=== PATIENT | male | born 1965 | race Caucasian/White ===

== ENCOUNTER → 2020-07-17 | Emergency (ER) | payer BC, OTHER ==
[~2020-07-17] VITALS: Ht 172.7 cm; Wt 95.4 kg
[~2020-07-17] MED LIST: HEPARIN 25,000UTS/250ML PREMIX 250 ML IV PRN; HEPARIN for IV BOLUS 10,000 UNIT/10 ML VIAL. IV ONE; HEPARIN for IV BOLUS 10,000 UNIT/10 ML VIAL. IV PRN; IOHEXOL 350 MG/ML 100 ML VIAL. IV ONE; NICOTINE 21MG PATCH. TD ONE; NITROGLYCERIN SUBLINGUAL 0.4 MG BOTTLE OF 25. SL PRN
--- NOTE | 2020-07-17 08:04 | PHYS DOC ---
Past History Past Medical History: CAD Past Surgical History: Other (cardiac stent) Smoking: Cigarettes Alcohol Use: Occasionally Drug Use: None General Adult EDM: Chief Complaint: CHEST PAIN HPI: HPI: Patient is a 54-year-old male who was brought here by EMS from work due to chest pain. Patient stated that he was at work this morning, started having substernal chest pain that radiated to his left shoulder. Patient took a total of 650 mg of aspirin. EMS were called to take him here for evaluation. EMS gave patient 1 dose of nitroglycerin and the pain improved. Patient said he had similar chest pain in the past in 2011. He was seen in the ER at [facility] in [place]. His work up was normal in the ER. He was admitted there, the next morning, his troponin elevated. They took him to the lab courier, found that he had blockage, had stents placed. Patient lives up in [place], [place]. His family physician is Dr. 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 Raghav Sage at [facility] in [place], [place]. currently the patient rated chest pain at 3 out of 10. Patient is fully vaccinated for COVID-19. Patient is still a smoker, he smoked 1 pack a day. Patient denies any recent travel or operation. Patient denies any history of diabetic or hypertension. Review of Systems: Review of Systems: Constitutional: Denies fever or chills Eyes: Denies change in visual acuity HENT: Denies nasal congestion or sore throat Respiratory: Denies cough or shortness of breath Cardiovascular: Positive for chest pain, no edema GI: Denies abdominal pain, nausea, vomiting, bloody stools or diarrhea : Denies dysuria Musculoskeletal: Denies back pain or joint pain Integument: Denies rash Neurologic: Denies headache, focal weakness or sensory changes Endocrine: Denies polyuria or polydipsia Lymphatic: Denies swollen glands Psychiatric: Denies depression or anxiety Physical Exam: PE: Constitutional: Well developed, well nourished, no acute distress, non-toxic appearance. [] HENT: Normocephalic, atraumatic, bilateral external ears normal, oropharynx moist, no oral exudates, nose normal. [] Eyes: PERRLA, EOMI, conjunctiva normal, no discharge. [] Neck: Normal range of motion, no tenderness, supple, no stridor. [] Cardiovascular:Heart rate regular rhythm, no murmur [] Lungs & Thorax: Bilateral breath sounds clear to auscultation [] Abdomen: Bowel sounds normal, soft, no tenderness, no masses, no pulsatile masses. [] Skin: Warm, dry, no erythema, no rash. [] Back: No tenderness, no CVA tenderness. [] Extremities: No tenderness, no cyanosis, no clubbing, ROM intact, no edema. [] Neurologic: Alert and oriented X 3, normal motor function, normal sensory function, no focal deficits noted. [] Psychologic: Affect normal, judgement normal, mood normal. [] Current Patient Data: Labs: Laboratory Tests Test 07/17/20 08:07 07/17/20 10:47 White Blood Count 7.6 x10^3/uL Red Blood Count 4.99 x10^6/uL Hemoglobin 15.7 g/dL Hematocrit 45.9 % Mean Corpuscular Volume 92 fL Mean Corpuscular Hemoglobin 32 pg Mean Corpuscular Hemoglobin Concent 34 g/dL Red Cell Distribution Width 13.5 % Platelet Count 235 x10^3/uL Neutrophils (%) (Auto) 63 % Lymphocytes (%) (Auto) 26 % Monocytes (%) (Auto) 8 % Eosinophils (%) (Auto) 3 % Basophils (%) (Auto) 1 % Neutrophils # (Auto) 4.8 x10^3uL Lymphocytes # (Auto) 2.0 x10^3/uL Monocytes # (Auto) 0.6 x10^3/uL Eosinophils # (Auto) 0.2 x10^3/uL Basophils # (Auto) 0.1 x10^3/uL Prothrombin Time 9.7 SEC Prothromb Time International Ratio 0.9 Activated Partial Thromboplast Time 27 SEC Sodium Level 142 mmol/L Potassium Level 4.4 mmol/L Chloride Level 107 mmol/L Carbon Dioxide Level 24 mmol/L Anion Gap 11 Blood Urea Nitrogen 12 mg/dL Creatinine 0.9 mg/dL Estimated GFR (Cockcroft-Gault) 88.6 BUN/Creatinine Ratio 13 Glucose Level 141 mg/dL Calcium Level 8.3 mg/dL Magnesium Level 1.8 mg/dL Total Bilirubin 0.2 mg/dL Aspartate Amino Transf (AST/SGOT) 24 U/L Alanine Aminotransferase (ALT/SGPT) 46 U/L Alkaline Phosphatase 114 U/L Troponin I Quantitative < 0.017 ng/mL 0.033 ng/mL ZY-Gao-F-Type Natriuretic Peptide 23 pg/mL Total Protein 6.2 g/dL Albumin 3.4 g/dL Albumin/Globulin Ratio 1.2 Lipase 446 U/L Current Medications Medications (Trade) Dose Ordered Sig/Fransico Route PRN Reason Start Time Stop Time Status Last Admin Dose Admin Nitroglycerin (Nitrostat) 0.4 mg PRN Q5MIN PRN SL CHEST PAIN 07/17/20 08:15 Iohexol (Omnipaque 350 Mg/ml) 100 ml 1X ONCE IV 07/17/20 09:45 07/17/20 09:48 DC 07/17/20 10:01 Nicotine (Nicoderm Cq 21mg Patch) 1 patch 1X ONCE TD 07/17/20 10:45 07/17/20 10:46 DC Heparin Sodium (Porcine) (Heparin Sodium) 4,000 unit 1X ONCE IV 07/17/20 12:00 07/17/20 12:01 DC 07/17/20 12:39 Heparin Sodium/ Dextrose 250 ml @ 10 mls/hr CONT PRN IV SEE I/O RECORD 07/17/20 12:00 07/17/20 12:37 Heparin Sodium (Porcine) (Heparin Sodium) 2,400 unit PRN Q6HRS PRN IV FOR PTT LESS THAN 24 SECONDS 07/17/20 12:00 EKG: EKG: EKG was done at 803, heart rate of 82 bpm, normal sinus rhythm, no ST segment elevation, normal axis. Radiology/Procedures: Radiology/Procedures: [address] [address] IMAGING REPORT Signed PATIENT: EUGENIO PANTOJA ACCOUNT: [id number] : 1965 LOCATION: ER AGE: 54 SEX: M EXAM STATUS: REG ER ORD. PHYSICIAN: ADENIKE PAYAN DO REASON: chest pain PROCEDURE: PORTABLE CHEST 1V EXAMINATION: Chest radiograph. VIEWS: Single AP view COMPARISON: None INDICATION: Chest pain FINDINGS: Normal cardiomediastinal silhouette. Patchy airspace opacity in the left infrahilar region. No pleural effusion or pneumothorax. No acute osseous process. IMPRESSION: Patchy opacity in the left infrahilar region, may represent atelectasis versus infiltrate. Electronically signed by: Camilo Ram MD (07/17/2020 8:34 AM) [id number] DICTATED AND SIGNED BY: CAMILO RAM MD DATE: 07/17/20 0832 CC: PCP,NO; ADENIKE PAYAN DO ~MTH0 [address] [id number] IMAGING REPORT Signed PATIENT: EUGENIO PANTOJA ACCOUNT: [id number] : 1965 LOCATION: ER AGE: 54 SEX: M EXAM STATUS: REG ER ORD. PHYSICIAN: ADENIKE PAYAN DO REASON: chest pain, soa, abdominal pain PROCEDURE: CT ANGIO CHEST ABD PELVIS EXAM: CT angiography of the chest, abdomen and pelvis with intravenous contrast. HISTORY: Pain. TECHNIQUE: Computed tomographic images of the chest were obtained following the administration of intravenous contrast according to angiography protocol. Multi planar reformatting was performed and three dimensional maximum intensity projection images were obtained. *One or more of the following individualized dose reduction techniques were utilized for this examination: 1. Automated exposure control. 2. Adjustment of the mA and/or kV according to patient size. 3. Use of iterative reconstruction technique. COMPARISON: None. FINDINGS: Chest: The thoracic aorta is normal in caliber. There is no aortic dissection. There is a standard aortic arch branching pattern. There are prominent mediastinal and hilar lymph nodes. These are likely physiologic in etiology. The thyroid is unremarkable. There is no pneumothorax. There is no pleural effusion. There is posterior dependent and basilar atelectasis. There is no infiltrate or suspicious pulmonary nodule. There are degenerative changes involving the thoracic spine. There is no acute osseous finding. Abdomen and pelvis: There is hepatic steatosis. No suspicious hepatic lesion is seen. The gallbladder is absent. The pancreas, stomach and adrenal glands are unremarkable. There is a splenule adjacent to an otherwise unremarkable spleen. There is a 4.4 cm simple cyst within the inferior right kidney. Follow-up is not routinely performed for simple cysts. There is no hydronephrosis. There is no appendicitis. There is no bowel obstruction. The bladder is unremarkable. The prostate is unremarkable. The aorta is normal in caliber. There is no stenosis involving the aortic branch vessels. There is an incidental left-sided inferior vena cava. There are degenerative changes throughout the spine. There is no acute or suspicious osseous finding. IMPRESSION: 1. No acute thoracic, abdominal or pelvic finding. 2. Hepatic steatosis. 3. Simple cyst within the right kidney. Follow-up is not routinely performed for simple cysts. 4. Prominent mediastinal lymph nodes, likely physiologic in etiology. Electronically signed by: Vickie Guzman MD (07/17/2020 10:20 AM) [id number] DICTATED AND SIGNED BY: VICKIE GUZMAN MD DATE: 07/17/20 1016 CC: PCP,NO; ADENIKE PAYAN DO ~MTH0 0 Heart Score: C/O Chest Pain: Yes HEART Score for Chest Pain: HEART Score for Chest Pain Response (Comments) Value History Moderately Suspicious 1 ECG Nonspecific Repolarizatio 1 Age >45 - < 65 1 Risk Factors >3 Risk Factors or Hx CAD 2 Troponin >1-<3x Normal Limit 1 Total 6 Risk Factors: Risk Factors: DM, Current or recent (<one month) smoker, HTN, HLP, family history of CAD, obesity. Risk Scores: Score 0 - 3: 2.5% MACE over next 6 weeks - Discharge Home Score 4 - 6: 20.3% MACE over next 6 weeks - Admit for Clinical Observation Score 7 - 10: 72.7% MACE over next 6 weeks - Early Invasive Strategies Course & Med Decision Making: Course & Med Decision Making Pertinent Labs and Imaging studies reviewed. (See chart for details) Patient is a 54-year-old male who presented to ER due to chest pain, CT scan of the chest did not show any dissection or any blood clot problem. The initial cardiac enzyme troponin was normal, EKG was normal as well. The second set up troponin 3 hours later is trending up consistent with NSTEMI. Patient will need to be evaluated by cardiology urgently, patient would like to go back to [facility] in [facility], CALLED THE TRANSFER CENTER THERE, THEY INDICATED THAT THEY DON'T HAVE ANY BED AVAILABLE and will not accept transfer at this time. Patient is ok to be transferred to another hospital in the area with lab courier, discussed with Dr. Jimenez, biodiesel engineering manager at [facility] IN [place], [place], agreed to take care of patient there. Jerry Disclaimer: Jerry Disclaimer: This electronic medical record was generated, in whole or in part, using a voice recognition dictation system. Departure Departure: Impression: Primary Impression: Chest pain Additional Impression: NSTEMI (non-ST elevated myocardial infarction) Disposition: 02 SHORT TERM HOSPITAL ([facility], accepted by Dr. Maher) Condition: STABLE (Transfer to [facility], accepted by Dr. Maher) ADENIKE PAYAN DO July 17, 2020 08:04
--- NOTE | 2020-07-17 08:09 | EKG ---
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
[2020-07-17 08:36] LABS: CALCIUM 8.3 mg/dL (8.5-10.1); CREATININE 0.9 mg/dL (0.7-1.3); GFR 88.6
--- NOTE | 2020-07-17 08:36 | RAD ---
EXAMINATION: Chest radiograph. VIEWS: Single AP view COMPARISON: None INDICATION: Chest pain FINDINGS: Normal cardiomediastinal silhouette. Patchy airspace opacity in the left infrahilar region. No pleura l effusion or pneumothorax. No acute osseous process. IMPRESSION: Patchy opacity in the left infrahilar region, may represent atelectasis versus infiltrate. Electronically signed by: She Ram MD (07/17/2020 8:34 AM) [id number]
[2020-07-17 08:37] LABS: BASO # 0.1 x10^3/uL (0.0-0.2); BASO % 1 % (0-3); EOS # 0.2 x10^3/uL (0.0-0.7); EOS % 3 % (0-3); HEMATOCRIT 45.9 % (39.0-53.0); HEMOGLOBIN 15.7 g/dL (13.0-17.5); LYMPH % 26 % (24-48); MEAN CORPUSCULAR HEMOGLOBIN 32 pg (25-35); MEAN CORPUSCULAR HGB CONC 34 g/dL (31-37); MEAN CORPUSCULAR VOLUME 92 fL (79-100); MONO # 0.6 x10^3/uL (0.0-1.1); MONO % 8 % (0-9); NEUT # 4.8 x10^3uL (1.8-7.7); NEUT % 63 % (31-73); PLATELET COUNT 235 x10^3/uL (140-400); RED BLOOD COUNT 4.99 x10^6/uL (4.30-5.70); RED CELL DISTRIBUTION WIDTH 13.5 % (11.5-14.5); WHITE BLOOD COUNT 7.6 x10^3/uL (4.0-11.0)
[2020-07-17 08:51] LABS: ALBUMIN 3.4 g/dL (3.4-5.0); ALBUMIN/GLOBULIN RATIO 1.2 (1.0-1.7); MAGNESIUM 1.8 mg/dL (1.8-2.4); TOTAL BILIRUBIN 0.2 mg/dL (0.2-1.0); TOTAL PROTEIN 6.2 g/dL (6.4-8.2)
[2020-07-17 09:08] LABS: POTASSIUM 4.4 mmol/L (3.5-5.1)
--- NOTE | 2020-07-17 10:22 | RAD ---
EXAM: CT angiography of the chest, abdomen and pelvis with intravenous contrast. HISTORY: Pain. TECHNIQUE: Computed tomographic images of the chest were obtained following the administration of int ravenous contrast according to angiography protocol. Multiplanar reformatting was performed and three dimensional maximum intensity projection images were obtained. *One or more of the following individualized dose reduction techniques were utilized for this examina tion: 1. Automated exposure control. 2. Adjustment of the mA and/or kV according to patient size. 3. Use of iterative reconstruction technique. COMPARISON: None. FINDINGS: Chest: The thoracic aorta is normal in caliber. There is no aortic dissection. There is a s tandard aortic arch branching pattern. There are prominent mediastinal and hilar lymph nodes. These a re likely physiologic in etiology. The thyroid is unremarkable. There is no pneumothorax. There is no pleural effusion. There is posterior dependent and basilar atelectasis. There is no infiltrate or cage spicious pulmonary nodule. There are degenerative changes involving the thoracic spine. There is no a cute osseous finding. Abdomen and pelvis: There is hepatic steatosis. No suspicious hepatic lesion is seen. The gallbladder is absent. The pancreas, stomach and adrenal glands are unremarkable. There is a splenule adjacent t o an otherwise unremarkable spleen. There is a 4.4 cm simple cyst within the inferior right kidney. F ollow-up is not routinely performed for simple cysts. There is no hydronephrosis. There is no appendicitis. There is no bowel obstruction. The bladder is unremarkable. The prostate is unremarkable. The aorta is normal in caliber. There is no stenosis involving the aortic branch vesse ls. There is an incidental left-sided inferior vena cava. There are degenerative changes throughout t he spine. There is no acute or suspicious osseous finding. IMPRESSION: 1. No acute thoracic, abdominal or pelvic finding. 2. Hepatic steatosis. 3. Simple cyst within the right kidney. Follow-up is not routinely performed for simple cysts. 4. Prominent mediastinal lymph nodes, likely physiologic in etiology. Electronically signed by: Vickie Mabry MD (07/17/2020 10:20 AM) [id number]
[2020-07-17 14:51] VITALS: BP 123/70
== END ==
LOC: ER 07:58
DX: I21.4 Non-ST elevation (NSTEMI) myocardial infarction (principal); R07.2 Precordial pain; I25.10 Atherosclerotic heart disease of native coronary artery without angina pectoris; F17.210 Nicotine dependence, cigarettes, uncomplicated
CPT/HCPCS: 36415; 71045; 71275; 74174; 80053; 83690; 83735; 83880; 84484; 85025; 85610; 85730; 93005; 96365; 96366; 96376; 99285; J1644; Q9967